=== PATIENT | female | born 1995 | race Caucasian/White ===

== ENCOUNTER 2020-05-31 22:38 | Emergency (ER) | payer OTHER ==
[~2020-05-31] VITALS: Ht 162.6 cm; Wt 57.5 kg
[2020-05-31] MEDS ORDERED: MORPHINE SULFATE 4 MG/ML, 1ML ONE (23:06)
[2020-05-31] MEDS ORDERED: ONDANSETRON 2MG/ML, 2ML ONE (23:07)
[2020-05-31 23:23] VITALS: BP 118/74
[2020-05-31] MEDS ORDERED: MORPHINE SULFATE 4 MG/ML, 1ML IVPush ONE (23:30)
[2020-05-31] MEDS ORDERED: ONDANSETRON 2MG/ML, 2ML IVPush ONE (23:30)
[2020-05-31 23:33] LABS: BASOPHILS # (AUTO) 0.01 x10^3/uL (0-0.1); BASOPHILS % (AUTO) 0 % (0-1); EOSINOPHILS # (AUTO) 0.02 x10^3/uL (0-0.4); EOSINOPHILS % (AUTO) 0 % (1-7); LYMPHOCYTES # (AUTO) 1.01 x10^3/uL (1-3.4); LYMPHOCYTES % (AUTO) 9 % (22-44); MD NO; MEAN CORPUSCULAR HEMOGLOBIN 30.8 pg (27.0-34.8); MEAN CORPUSCULAR HGB CONC 33.6 g/dL (32.4-35.8); MEAN CORPUSCULAR VOLUME 91.5 fL (80-100); MEAN PLATELET VOLUME 7.4 fL (7.4-10.4); MONOCYTES # (AUTO) 1.19 x10^3/uL (0.2-0.8); MONOCYTES % (AUTO) 11 % (2-9); NEUTROPHILS # (AUTO) 8.86 x10^3/uL (1.8-6.8); NEUTROPHILS % (AUTO) 80 % (42-75); PLATELET COUNT 288 x10^3/uL (130-400); RED BLOOD COUNT 4.51 x10^6/uL (3.82-5.3); RED CELL DISTRIBUTION WIDTH 11.4 % (9.6-15.2)
--- NOTE | 2020-05-31 23:36 | NUR ---
THIS IS A 24 YO FEMALE COMING IN FOR RLQ ABD PAIN STARTING LAST MONDAY, INTERMITTENT THROUGHOUT THE WEEK WITH N/V/D, WORSENIGN TODAY WITH CONSTANT PAIN. DENIES ANY MEDICAL HX, RLQ TENDER TO PALPATION. DENIES FLANK PAIN, DYSURIA, OR HEMATURIA. STATES 103 FEVER AT HOME EARLIER, 99.5 HERE. PIV PLACED, MEDICATED PER EMAR, LABS DRAWN, UA SENT. MONITORING IN PLACE, VSS, CALL LIGHT IN REACH.
[2020-05-31 23:37] LABS: HCG UR SG 1.005 (1.003-1.030); MICROSCOPIC AUTO
[2020-05-31 23:41] LABS: ANION GAP 7 mmol/L (5-15); CALCIUM 8.8 mg/dL (8.5-10.1); CHLORIDE 106 mmol/L (98-107); CREATININE 0.89 mg/dL (0.55-1.02)
--- NOTE | 2020-06-01 00:12 | NUR ---
PATIENT BACK FROM CT AT THIS TIME
[2020-06-01] MEDS ORDERED: CEFTRIAXONE PMX 1GM/50ML 50 ML ONE (00:45)
[2020-06-01] MEDS ORDERED: CEFTRIAXONE PMX 1GM/50ML 50 ML IV ONE (01:00)
--- NOTE | 2020-06-01 02:00 | NUR ---
Patient given discharge instructions and they have confirmed that they understand the instructions. Patient ambulatory with steady gait.
[2020-06-01] MEDS ORDERED: OMNIPAQUE 350 MG/ML, 100ML BOTTLE ONE ×2 (02:04→03:45)
== END 2020-06-01 02:09 | disposition home or self-care (01) ==
LOC: ED 23:45
DX: N10 Acute pyelonephritis (principal); N30.00 Acute cystitis without hematuria; R10.31 Right lower quadrant pain; R11.2 Nausea with vomiting, unspecified; R00.0 Tachycardia, unspecified; M54.5 Low back pain
CPT/HCPCS: 36415; 74177; 80048; 81001; 81025; 85025; 87077; 87086; 87186; 96365; 96375; 99285; J0696; J2270; J2405; Q9967